=== PATIENT | male | born 1945 | race Caucasian/White ===

== ENCOUNTER 2018-02-20 07:12 | Inpatient (IN) | payer MEDICARE, MEDICAID ==
[~2018-02-20] VITALS: Ht 167.6 cm; Wt 90.7 kg
[2018-02-20 07:50] VITALS: BP 126/78
[2018-02-20 08:00] VITALS: BP 126/78
--- NOTE | 2018-02-20 08:00 | NUR ---
MSRN OPENING NOTES. PT ADMITTED A&0X3 MONEGASQUE SPEAKING. PT WITH SON KRISTYN FOR TRANSLATION AND HX. PT VITALS ENTERED & PT SKIN INTACT. PT TOLERATING ROOM AIR WITHOUT SOB OR RESP DISTRESS. PT DENIES PAIN. IVC STARTED AT L WRIST G#18 FLUSHED PATENT AND SL. MD ORDERS PLACED, CONSENTS SIGNED AND CHECKLIST COMPLETE. PT BED IN LOWEST LOCKED POSITION WITH [id number] AND CALL RANGEL WITHIN REACH. PT BRIEFED ON TODAY'S POC AND IS WITHOUT CONCERN OR COMPLAINT AT THIS TIME.
[2018-02-20 08:20] LABS: BASOPHILS % (AUTO) 0.6 % (0.0-2.0); EOSINOPHILS # (AUTO) 0.1 /CMM (0.0-0.7); EOSINOPHILS % (AUTO) 2.7 % (0.0-6.0); HEMATOCRIT 42 % (39-51); HEMOGLOBIN 14.5 g/dL (13.5-17.5); LYMPHOCYTES # (AUTO) 1.7 /CMM (0.8-4.8); LYMPHOCYTES % (AUTO) 34.5 % (20.0-44.0); MEAN CORPUSCULAR HEMOGLOBIN 35 PG (26.0-33.0); MEAN CORPUSCULAR HGB CONC 35 g/dl (31.0-36.0); MEAN CORPUSCULAR VOLUME 100 fL (80-96); MONOCYTES # (AUTO) 0.6 /CMM (0.1-1.30); MONOCYTES % (AUTO) 11.6 % (2.0-12.0); NEUTROPHILS # (AUTO) 2.5 /CMM (1.8-8.9); NEUTROPHILS % (AUTO) 50.6 % (43.0-81.0); PLATELET COUNT (AUTO) 126 /CMM (150-450); RDW COEFFICIENT OF VARIATION 13.3 (11.5-15.0); RED BLOOD CELL COUNT(AUTO) 4.22 MIL/uL (4.5-6.0); WHITE BLOOD COUNT (AUTO) 4.9 K/uL (4.3-11.0)
[2018-02-20 08:27] LABS: CALCIUM, SERUM 8.2 mg/dL (8.5-10.1); CARBON DIOXIDE 30 mmol/L (21-32); CHLORIDE 107 mmol/L (98-107); CREATININE 0.7 mg/dL (0.6-1.3); GLUCOSE 110 mg/dL (74-106); SODIUM SERUM 144 mmol/L (136-145); UREA NITROGEN, BLOOD 10 mg/dL (7-18)
[2018-02-20 08:31] LABS: MAGNESIUM 1.7 mg/dL (1.8-2.4); PHOSPHORUS 3.7 mg/dL (2.5-4.9)
[2018-02-20 09:23] LABS: INR 1.15 (0.87-1.13)
[2018-02-20] MEDS ORDERED: LIDOCAINE 1%-EPI 1:100,000 20 ML VIAL ONE (09:23)
[2018-02-20] MEDS ORDERED: ANESTHESIA TRAY IN PYXIS 1 EA TRAY MC ONE (09:23)
[2018-02-20] MEDS ORDERED: MANNITOL 50 ML IV ONE (09:23)
[2018-02-20] MEDS ORDERED: BUPIVACAINE 0.25% 75 MG/30 ML VIAL ONE (09:24)
[2018-02-20] MEDS ORDERED: ROCURONIUM BROMIDE 50 MG/5 ML ONE (09:43)
[2018-02-20] MEDS ORDERED: Magnesium 1GM/D5W 100ML PREMIX 100 ML IV SCH (10:10)
[2018-02-20] MEDS ORDERED: BACITRACIN OPHTH OINT 3.5 GM TUBE ONE (10:48)
[2018-02-20] MEDS ORDERED: GELATIN SPONGE,ABSORBABLE 1 EA SPONGE TP ONE (10:49)
[2018-02-20 12:20] VITALS: BP 130/75
[2018-02-20] MEDS ORDERED: GABAPENTIN 300 MG CAPSULE PO ONE (13:30)
[2018-02-20] MEDS ORDERED: ACETAMINOPHEN 325 MG TABLET PO ONE (13:30)
[2018-02-20] MEDS ORDERED: IV LR 1000 ML 1,000 ML IV PRN (13:30)
[2018-02-20] MEDS ORDERED: IBUPROFEN 400 MG TABLET PO ONE (13:30)
[2018-02-20 14:00] VITALS: BP 134/78
--- NOTE | 2018-02-20 14:30 | NUR ---
RN CLOSING NOTES. PT PREPARED FOR D/C PER MD. PT WITH SON FOR TRANSLATION. PT TOLERATING ROOM AIR AND DENIES PAIN. PT VITALS ALL STABLE AND WNL. PT BRIEFED ON MD D/C ORDERS AND MEDICATIONS. PT VERBALIZING UNDERSTANDING, RESOURCES AND INTENT TO FOLLOW POC. PT IV REMOVED AND NAD AT SITE. PT WITH ALL BELONGINGS. PT LEFT WITH SON, PT AND SON WITHOUT CONCERN OR COMPLAINT.
== END 2018-02-20 14:15 | disposition home or self-care (01) | DRG 349 ==
LOC: DS 07:12 → MED 07:17
PROVIDERS: ADMIT Surgery; ATTEND Surgery
PROC: 06BY0ZC Excision of Hemorrhoidal Plexus, Open Approach (ICD-10-PCS; principal; 2018-02-20 09:30)
PROC: 0D8R0ZZ Division of Anal Sphincter, Open Approach (ICD-10-PCS; 2018-02-20 09:30)
DX: K64.3 Fourth degree hemorrhoids (principal); K60.1 Chronic anal fissure; K64.4 Residual hemorrhoidal skin tags
CPT/HCPCS: 36415; 80048-TC; 82962-TC; 83735-TC; 84100-TC; 85025-TC; 85610-TC; 85730-TC; 88304-TC; 88305-TC; J2150; J3490; Z7610